=== PATIENT | female | born 1995 | race Caucasian/White ===

== ENCOUNTER 2019-11-18 13:10 | Emergency (ER) | payer OTHER ==
[~2019-11-18] VITALS: Ht 160 cm; Wt 58.1 kg
[2019-11-18 13:20] VITALS: BP 115/72
--- NOTE | 2019-11-18 13:24 | NUR ---
AMB TO BED 11 Addendum: 11/18/19 at 1327 by KYLEIGH BED 12 NOT 11
--- NOTE | 2019-11-18 13:27 | NUR ---
24/F C/O POSSIBLE SPIDER BITE TO RT LABIA. STATES THE SITE "POPPED" TODAY AND IS LEAKING WHITE DISCHARGE. TAKING CEPHALEXIN FROM OUTPATIENT MD (DAY 2 OF ABX). DENIES N/V, F/C. APPEARS NAD. HX- DENIES
--- NOTE | 2019-11-18 13:27 | NUR ---
DENIES UTI SYMPTOMS
--- NOTE | 2019-11-18 13:35 | NUR ---
Female Lance Crewmember/[employer] Sergeant (MYSELF) accompanied DR. YUSUF FOR female patient PERINEAL AREA Exam.
[2019-11-18 13:58] VITALS: BP 115/72
--- NOTE | 2019-11-18 13:59 | NUR ---
Patient discharged with v/s stable. Written and verbal after care instructions given and explained. Patient alert, oriented and verbalized understanding of instructions. Ambulatory with steady gait. All questions addressed prior to discharge. ID band removed. Patient advised to follow up with PMD. Rx of BACTRIM AND MOTRIN given. Patient educated on indication of medication including possible reaction and side effects. Opportunity to ask questions provided and answered.
== END 2019-11-18 13:59 | disposition home or self-care (01) ==
LOC: MED 13:10
DX: N76.4 Abscess of vulva (principal)
CPT/HCPCS: 99283

== ENCOUNTER 2021-11-09 16:12 | Emergency (ER) | payer OTHER ==
[~2021-11-09] VITALS: Ht 160 cm; Wt 66.7 kg
[2021-11-09 16:28] VITALS: BP 138/93
--- NOTE | 2021-11-09 16:41 | NUR ---
26 Y/O FEMALE C/O OF "PROLAPSED CERVIX" STATED THAT SHE GAVE VAGINALLY ON September AND HER UTERUS PROLAPSED, WAS RETURNED AND NOW FEELS A PRESSURE IN THE LOWER ABDOMEN. [id number]. ALLERGY: BACTRIM PMH: DENIES
--- NOTE | 2021-11-09 16:56 | NUR ---
DR VALVERDE AT BEDSIDE FOR EVAL
--- NOTE | 2021-11-09 18:13 | NUR ---
Pelvic exam performed by DR VALVERDE with TORO OTERO FEMALE PHOTOGRAPHIC ENGINEER at bedside for entire examination. Patient tolerated procedure WELL. Patient assisted to position of comfort after examination.
[2021-11-09 19:07] VITALS: BP 110/74
--- NOTE | 2021-11-09 19:08 | NUR ---
Patient discharged with v/s stable. Written and verbal after care instructions ABOUT PELVIC ORGAN PROLAPSE given and explained. Patient verbalized understanding. Ambulatory with steady gait. All questions addressed prior to discharge. Advised to follow up with PMD.
== END 2021-11-09 19:09 | disposition home or self-care (01) ==
LOC: MED 16:12
DX: R10.2 Pelvic and perineal pain (principal); N81.2 Incomplete uterovaginal prolapse; Z88.2 Allergy status to sulfonamides; Z88.1 Allergy status to other antibiotic agents
CPT/HCPCS: 99281